=== PATIENT | female | born 1930 | race Caucasian/White ===

== ENCOUNTER → 2017-12-27 | Outpatient (CLI) | payer OTHER | END | disposition home or self-care (01) | LOC: KCIC US 14:16 | DX: I10 Essential (primary) hypertension (principal); I65.21 Occlusion and stenosis of right carotid artery; H54.7 Unspecified visual loss; R09.89 Other specified symptoms and signs involving the circulatory and respiratory systems; R41.3 Other amnesia | CPT/HCPCS: 93880 ==

== ENCOUNTER 2018-04-30 10:07 | Inpatient (IN) | payer OTHER ==
[~2018-04-30 10:07] MED LIST: HEPARIN SODIUM 5,000 UNIT in IV NORMAL SALINE 500ML BAG 500 ML IRR; LIDOCAINE 1% PF 2 ML VIAL. ID; LIDOCAINE 1% PF 48 ML, SODIUM BICARBONATE VIAL 12 MEQ in TOTAL VOLUME SYRINGE 60 ML ID; MORPHINE SULFATE 2 MG/ML DISP.SYRIN. IV; ONDANSETRON PF 4 MG/2 ML VIAL. IV; PROCHLORPERAZINE 10 MG/2 ML VIAL. IV; fentaNYL PF VIAL 100 MCG/2 ML VIAL IV
[2018-04-30] MEDS: IV RINGERS,LACTATED 1000ML 1,000 ML IV (11:13)
[2018-04-30 11:16] LABS: ADD MAN DIFF? NO
[2018-04-30 11:20] LABS: BASO % 1 % (0-3); EOS # 0.1 x10^3/uL (0.0-0.7); EOS % 1 % (0-3); HEMATOCRIT 33.2 % (36.0-47.0); LYMPH # 0.9 x10^3/uL (1.0-4.8); LYMPH % 15 % (24-48); MEAN CORPUSCULAR HEMOGLOBIN 32 pg (25-35); MEAN CORPUSCULAR HGB CONC 33 g/dL (31-37); MEAN CORPUSCULAR VOLUME 97 fL (79-100); MONO # 0.5 x10^3/uL (0.0-1.1); MONO % 9 % (0-9); NEUT # 4.5 x10^3uL (1.8-7.7); NEUT % 76 % (31-73); PLATELET COUNT 180 x10^3/uL (140-400); RED BLOOD COUNT 3.42 x10^6/uL (3.50-5.40); RED CELL DISTRIBUTION WIDTH 16.2 % (11.5-14.5)
[2018-04-30 11:29] LABS: ANION GAP 5 (6-14); BLOOD UREA NITROGEN 16 mg/dL (7-20); CALCIUM 8.2 mg/dL (8.5-10.1); CARBON DIOXIDE 32 mmol/L (21-32); CHLORIDE 103 mmol/L (98-107); CREATININE 1.2 mg/dL (0.6-1.0); GFR 42.6; GLUCOSE 111 mg/dL (70-99); POTASSIUM 4.5 mmol/L (3.5-5.1); SODIUM 140 mmol/L (136-145)
[2018-04-30 11:30] LABS: INR 1.1 (0.8-1.1); PROTHROMBIN TIME PATIENT 13.5 SEC (11.7-14.0)
[2018-04-30 11:31] LABS: PARTIAL THROMBOPLASTIN TIME 30 SEC (24-38)
[2018-04-30] MEDS ORDERED: fentaNYL PF VIAL 100 MCG/2 ML VIAL ×3 (13:24→15:26)
[2018-04-30] MEDS ORDERED: MIDAZOLAM HCL/PF 2 MG/2 ML VIAL. (13:24)
[2018-04-30] MEDS ORDERED: LIDOCAINE 2% PF Vial for OR 5 ML VIAL. (13:47)
[2018-04-30] MEDS ORDERED: ROPIVacaine 0.5% PF 30 ML VIAL. (13:47)
[2018-04-30] MEDS ORDERED: LABETALOL 20 MG/4 ML DISP.SYRIN. IVP ×3 (14:35→17:00)
[2018-04-30] MEDS: LIDOCAINE 1% PF 30 ML VIAL. INJ (14:41)
[2018-04-30] MEDS ORDERED: HEPARIN for IV BOLUS 10,000 UNIT/10 ML VIAL. (14:44)
[2018-04-30] MEDS: SURGICEL FIBRILLAR 1X2 EACH. (16:13)
[2018-04-30] MEDS ORDERED: ESMOLOL 100 MG/10 ML VIAL. IV (16:24)
[2018-04-30] MEDS ORDERED: MAGNESIUM HYDROXIDE 2,400 MG/30 ML ORAL.SUSP. PO (16:30)
[2018-04-30] MEDS ORDERED: 0.9 % SODIUM CHLORIDE 10 ML DISP.SYRIN. IV (16:30)
[2018-04-30] MEDS ORDERED: ONDANSETRON PF 4 MG/2 ML VIAL. IV (16:30)
[2018-04-30] MEDS ORDERED: MORPHINE SULFATE 2 MG/ML DISP.SYRIN. IV (16:30)
[2018-04-30] MEDS ORDERED: oxyCODONE IR 5 MG TABLET PO (16:30)
[2018-04-30] MEDS: hydrALAZINE 20 MG/ML VIAL. IVP (18:27)
[2018-04-30] MEDS: POTASSIUM CL 20MEQ-0.45% NACL 1,000 ML IV (19:47)
[2018-04-30] MEDS: SENNOSIDES/DOCUSATE 8.6/50MG TABLET. PO (21:12)
[2018-05-01] MEDS: HYDROcodone/APAP 5/325MG 1 TAB TABLET PO (01:56)
[2018-05-01] MEDS: POTASSIUM CL 20MEQ-0.45% NACL 1,000 ML IV (04:45)
[2018-05-01] MEDS ORDERED: ASPIRIN ENTERIC COATED 325 MG TABLET.DR. PO (08:00)
== END 2018-05-01 09:05 | disposition home or self-care (01) | DRG 39 ==
LOC: OPSVCIP 10:07 → 2 SOUTH 17:55
PROC: 03CH0Z6 (ICD-10-PCS; principal; 2018-04-30 12:15)
PROC: 03CK0ZZ Extirpation of Matter from Right Internal Carotid Artery, Open Approach (ICD-10-PCS; 2018-04-30 12:15)
PROC: 03CM0ZZ Extirpation of Matter from Right External Carotid Artery, Open Approach (ICD-10-PCS; 2018-04-30 12:15)
DX: I65.21 Occlusion and stenosis of right carotid artery (principal); I71.4 Abdominal aortic aneurysm, without rupture
CPT/HCPCS: 36415; 80048; 85025; 85610; 85730; J0360; J0690; J1644; J2001; J2250; J2795; J3010; J3490; J7040; J7120